=== PATIENT | female | born 1990 | race African-American/Black ===

== ENCOUNTER 2025-02-12 11:17 | Outpatient (REF) | payer OTHER, SELFPAY ==
[2025-02-12 13:37] LABS: Estimated Average Glucose 111 mg/dL; Hemoglobin A1C 113.8598 umol/L; Hemoglobin A1c % 5.5 % (<6.0); Total Hemoglobin (HGBA1C) 3107.1378 umol/L
[2025-02-12 14:15] LABS: Alanine Aminotransferase 15 U/L (0-31); Anion Gap 10 (12-20); Aspartate Amino Transferase 21 U/L (5-31); Bilirubin Total 0.2 mg/dL (0.0-1.0); Blood Urea Nitrogen 17 mg/dL (9-16); Calcium 9.1 mg/dL (8.4-10.2); Carbon Dioxide 25 mmol/L (22-29); Chloride 109 mmol/L (96-108); Estimated Glomerular Filt Rate > 60; Glucose Random 92 mg/dL (60-115); Potassium 4.2 mmol/L (3.3-5.1); Sodium 140 mmol/L (135-145); Total Protein 7.3 g/dL (6.5-8.0)
[2025-02-12 14:20] LABS: Alkaline Phosphatase 64 U/L (39-117)
== END 2025-02-12 11:18 | disposition home or self-care (01) ==
LOC: HO.10HDL 11:17
PROVIDERS: Visit Provider Internal Medicine
DX: B37.32 Chronic candidiasis of vulva and vagina (principal); E66.9 Obesity, unspecified; Z68.37 Body mass index [BMI] 37.0-37.9, adult; Z13.1 Encounter for screening for diabetes mellitus
CPT/HCPCS: 36415; 80053; 83036